=== PATIENT | male | born 1980 | race Caucasian/White ===

== ENCOUNTER 2024-12-07 08:17 | Outpatient (REF) | payer OTHER, SELFPAY ==
--- NOTE | ~2024-12-07 | XR_ITS ---
EXAMINATION: XR KNEE 3 VIEWS RIGHT HISTORY: M25.569 - Pain in unspecified knee COMPARISON: There are no prior studies available for comparison. FINDINGS: Standing AP views of both knees and additional lateral and sunrise patellar views of the right knee are submitted. Osseous mineralization is normal. There is no fracture or dislocation. The joint spaces are preserved. There is no joint effusion. The patient is status post left ACL repair. There is a probable old healed fracture of the proximal left fibula. XR/XR knee RT 3V IMPRESSION: Unremarkable examination of the right knee. Electronically signed by: Arik Pope MD 12/07/2024 01:39 PM EDT
== END 2024-12-07 08:18 | disposition home or self-care (01) ==
LOC: HO.HOSX 08:17
PROVIDERS: Visit Provider Physician Assistant
DX: M25.569 Pain in unspecified knee (principal)
CPT/HCPCS: 73562; 99202

== ENCOUNTER 2024-12-07 10:40 | Outpatient (AMB) | payer OTHER, SELFPAY ==
--- NOTE | 2024-12-07 11:14 | A.OFFVIS_ITS ---
Vital Signs 12/07/24 11:18 Height 5 ft 9 in Weight 160 lb BMI 23.6 Handedness Right Intake Visit Reasons: [employer]-Right knee pain DOI 10/19/24. Intake Note: Isael is a 44 year old male who presents today as a new patient for a evaluation of his right knee pain, WC 10/19/24. Patient reports he got his boot got stuck in a wheel wells when he turned and felt a pop in his knee. He states today he is feeling better and he has been doing at home exercises. Patient states that he is still having pain through out his knee. 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 Allergies No Known Allergies [No Known Allergies*] Allergy (Verified 12/07/24 11:16) HPI HPI [employer]-Right knee pain DOI 10/19/24.: Details: Mr. London is a 44-year-old male who presents to the office today for evaluation of right knee pain and instability. His pain is located over the medial aspect of the knee and has episodes of giving out. He reports that on 10/19/2024 he was at work in the back of his work truck when his boot got stuck in the wheel well as and he twisted. At that time he felt a popping sensation and pain. Has been performing a home exercise program but his pain is persisting and he is concerned about the episodes of giving way. 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 Tenderness to palpation over the medial joint line. Negative Sebastien's. Positive laxity with anterior drawer. Positive medial-sided laxity with valgus stress. NVI. Assessment & Plan Assessment & Plan (1) Acute injury of anterior cruciate ligament: Code(s): S89.80XA - Other specified injuries of unspecified lower leg, initial encounter Category: Medical (2) Injury of medial collateral ligament (MCL) of knee: Code(s): S89.90XA - Unspecified injury of unspecified lower leg, initial encounter Category: Medical Plan Mr. London is a 44-year-old male who presents to the office today for evaluation of right knee pain and instability. His pain is located over the medial aspect of the knee and has episodes of giving out. He reports that on 10/19/2024 he was at work in the back of his work truck when his boot got stuck in the wheel well as and he twisted. At that time he felt a popping sensation and pain. Has been performing a home exercise program but his pain is persisting and he is concerned about the episodes of giving way. While in the office today, we decided to move forward with an MRI to further evaluate the integrity of the knee and the surrounding structures. The patient does have laxity when testing the ACL and medial collateral ligament. Patient will follow up after the MRIs obtained, sooner if needed. He has been working full-time regular duty and will continue to do so. X-rays of the [facility]OD[facility] which were obtained while in the office today and were reviewed by me, Emilia Rubio PA-C, revealed no acute fracture dislocation. Evidence of ACL reconstruction on the left knee. Orders: Orders XR knee LT 1V Today M25.569 - Pain in unspecified knee XR knee RT 3V Today M25.569 - Pain in unspecified knee Coding Level of Care Code New Pt Level 4 (57658) Diagnoses Acute injury of anterior cruciate ligament S89.80XA Injury of medial collateral ligament (MCL) of knee S89.90XA
[2024-12-07 11:18] VITALS: BMI 23.6
== END 2024-12-07 11:51 | disposition home or self-care (01) ==
LOC: HO.HOS 10:41
PROVIDERS: Visit Provider Physician Assistant
DX: S89.80XA Other specified injuries of unspecified lower leg, initial encounter (principal); S89.90XA Unspecified injury of unspecified lower leg, initial encounter; Z04.2 Encounter for examination and observation following work accident
CPT/HCPCS: 99204

== ENCOUNTER → 2024-12-07 10:44 | Outpatient (BNV) | payer OTHER, SELFPAY | PROVIDERS: Visit Provider Radiology Diagnostic Radiology | DX: M25.561 Pain in right knee (principal) | CPT/HCPCS: 73562 ==

== ENCOUNTER 2025-01-10 13:43 | Outpatient (AMB) | payer OTHER, SELFPAY ==
--- NOTE | 2025-01-10 13:43 | MHC.OFFVIS ---
Vital Signs 01/10/25 13:44 Height 5 ft 9 in Weight 160 lb BMI 23.6 Intake Visit Reasons: Ph: Right knee MRI review Intake Note: Isael is a 44 year old male who presents via telephone for a MRI review of his right knee. Allergies No Known Allergies [No Known Allergies*] Allergy (Verified 01/10/25 13:44) HPI HPI Ph: Right knee MRI review: Details: Patient is a 44-year-old male who presents via telehealth appointment for MRI review of the right knee. He reports that the knee has continued to be bothersome to him. He reports maybe a slight improvement in pain. He has continued working full-time regular duty since his injury. 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 [employer] Review of Systems Const All systems reviewed & are unremarkable except as noted in HPI and below Physical Exam Vital Signs: BMI result Body Mass Index 23.6 Extrem Other: Deferred due to telehealth Telehealth Telehealth Telehealth Platform: Telephone Location of provider rendering services: practice address Location of patient: address on file Patient Identification confirmed using: Name, : Yes Telehealth method: voice only Patient verbally consented to treatment: Yes Patient verbally consented to billing insurance company: Yes Patient informed of any privacy concerns related to visit: Yes Minutes spent on Phone/Video with Pt.: 10 Assessment & Plan Assessment & Plan (1) Injury of medial collateral ligament (MCL) of knee: Code(s): S89.90XA - Unspecified injury of unspecified lower leg, initial encounter Category: Medical (2) Acute injury of anterior cruciate ligament: Code(s): S89.80XA - Other specified injuries of unspecified lower leg, initial encounter Category: Medical (3) Knee contusion: Code(s): S80.00XA - Contusion of unspecified knee, initial encounter Category: Medical Plan Patient is a 44-year-old male who presents via telehealth appointment for MRI review of the right knee. He reports that the knee has continued to be bothersome to him. He reports maybe a slight improvement in pain. He has continued working full-time regular duty since his injury. MRI that was obtained at [facility] on 01/08/2025 reveals a proximally torn ACL ligament. As well as osseous contusions with a lateral femoral condyle consistent with impaction injury and an MCL sprain. I discussed these findings with the patient. I have recommended physical therapy in which the patient is agreeable to attend 1-2 sessions with a home exercise program. I will follow up with him in 4 weeks in the office for re-evaluation, sooner if needed. Coding Level of Care Code Tele Est Pt Level 3 (48624) Diagnoses Injury of medial collateral ligament (MCL) of knee S89.90XA Acute injury of anterior cruciate ligament S89.80XA Knee contusion S80.00XA
[2025-01-10 13:44] VITALS: BMI 23.6
== END 2025-01-10 13:44 | disposition home or self-care (01) ==
LOC: HO.HOS 13:43
PROVIDERS: Visit Provider Physician Assistant
DX: S89.91XA Unspecified injury of right lower leg, initial encounter (principal); S89.81XA Other specified injuries of right lower leg, initial encounter; S80.01XA Contusion of right knee, initial encounter
CPT/HCPCS: 98012

== ENCOUNTER 2025-02-12 11:20 | Outpatient (AMB) | payer OTHER, BC, SELFPAY ==
--- NOTE | 2025-02-12 11:25 | MHC.OFFVIS ---
Intake Visit Reasons: OV - right knee pain, WC 10/19/24 Intake Note: Isael is a 44 year old male who presents today for a follow up of his right knee pain, 10/19/24. At the last visit patient was recommended physical therapy in which the patient is agreeable to attend 1-2 sessions with a home exercise program. Patient reports eh s doing well. Patient is still going to physical therapy and it is helping. Allergies No Known Allergies [No Known Allergies*] Allergy (Verified 02/12/25 11:36) HPI HPI OV - right knee pain, 10/19/24: Details: Mr. London is a 44 yo male who presents to the office today for routine followup of right knee pain. DOI was 10/19/24 when he was in the back of his work truck when his boot got stuck in the wheel well as and he twisted. The patient states that he has been working with [employer] and overall feels like he is making slow progress. 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 Tenderness to palpation over the medial joint line. Negative Sebastien's. Positive laxity with anterior drawer. Positive medial-sided laxity with valgus stress. NVI. Assessment & Plan Assessment & Plan (1) Injury of medial collateral ligament (MCL) of knee: Code(s): S89.90XA - Unspecified injury of unspecified lower leg, initial encounter Category: Medical (2) Acute injury of anterior cruciate ligament: Code(s): S89.80XA - Other specified injuries of unspecified lower leg, initial encounter Category: Medical (3) Knee contusion: Code(s): S80.00XA - Contusion of unspecified knee, initial encounter Category: Medical Plan Mr. London is a 44 yo male who presents to the office today for routine followup of right knee pain. DOI was 10/19/24 when he was in the back of his work truck when his boot got stuck in the wheel well as and he twisted. 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 and overall feels like he is making slow progress. While in the office today I have recommended that the patient continue with physical therapy until all viits have been completed. I offered the patient a knee brace to wear during activities and during coaching. The patient has declined at this time. He will follow up prn, sooner as needed. Coding Level of Care Code Est Pt Level 3 (49953) Diagnoses Injury of medial collateral ligament (MCL) of knee S89.90XA Acute injury of anterior cruciate ligament S89.80XA Knee contusion S80.00XA
== END 2025-02-12 11:49 | disposition home or self-care (01) ==
PROVIDERS: Visit Provider Physician Assistant
DX: S89.91XA Unspecified injury of right lower leg, initial encounter (principal); S89.81XA Other specified injuries of right lower leg, initial encounter; S80.01XA Contusion of right knee, initial encounter
CPT/HCPCS: 99213

== ENCOUNTER → 2025-02-12 11:20 | Outpatient (BNVA) | payer OTHER, SELFPAY | PROVIDERS: Visit Provider Physician Assistant | DX: S89.81XA Other specified injuries of right lower leg, initial encounter (principal); S80.01XA Contusion of right knee, initial encounter | CPT/HCPCS: 99212 ==

== ENCOUNTER 2025-02-28 11:54 | Outpatient (RCR) | payer OTHER, BC, SELFPAY ==
--- NOTE | 2025-01-29 15:26 | MHC.PT.EP ---
[facility] [place] Office [place] Office [place] Office [address] [phone] F: [phone] F: [phone] F: [phone] F: [phone] Physical Therapy Plan of Care Date of Evaluation: 01/29/25 Date of Surgery: N/A Diagnosis: injury of medial collateral ligament (MCL) of knee (RL) MCL and ACL partial tearing R knee Assessment: pt is a 44 y/o male presenting to physical therapy w/ referring diagnosis of injury of medial collateral ligament (MCL) of knee. His MRI demonstrated a partial MCL tear and proximal insertion ACL tear. Impairments include pain, decreased range of motion, decreased strength, impaired functional mobility, impaired postural awareness, and altered ambulation mechanics. pt is a good candidate for skilled PT due to age, potential remediation of impairments, typical disease/condition progression and prognosis, comorbidities, and motivation. pt would benefit from skilled PT intervention to provide a tailored strengthening and stretching exercise program, functional training, gait training, postural re-training, neuromuscular re-education, modalities as needed for pain, equipment safety demonstration. Frequency and Duration: The patient will be seen 2x/wk for 4 wks Short Term Goals: pt will be I w/ HEP to promote self-management of condition. pt will demo symmetrical weightbearing w/ functional squat to promote ease in work-related lifting. Detention Goals: pt will report a statistically significant improvement in self-reported outcome measure, LEFI, to promote return to PLOF. pt will improve R hip EXT and R knee EXT strength to 5/5 to promote ease in rising from a kneeling position for work. pt will report <2/10 R knee pain w/ ascending/descending 12 stairs w/ reciprocal pattern to promote ease in stairs. Treatment Plan: Modalities to reduce pain, spasms and effusion. Manual therapy to restore motion and function. Therapeutic exercise to improve strength and flexibility. Neuromuscular re-education for posture and balance. Therapeutic activities to return to functional activities of daily living. Electronically signed by: Maria D Smith PT, DPT Please sign and return to therapist. Thank you for your referral.
--- NOTE | 2025-03-12 10:09 | MHC.PT.DC ---
[facility] [place] Office [place] Office [place] Office [address] Lai [address] [facility] [phone] F: [phone] F: [phone] F: [phone] F: [phone] Physical Therapy Discharge Report Diagnosis: injury of medial collateral ligament (MCL) of knee (RL) MCL and ACL partial tearing R knee Date of Surgery: N/A Date of Evaluation: 01/29/25 Date of Discharge: 03/12/25 Treatments to Date: 8 Cancellations to Date: 1 No Shows to Date: 0 Discharge Status: Improved Function Independent with HEP Discharge Summary: The patient has not been complaining of any knee pain. He feels his leg is stable at rest and with dynamic activity. He has returned to nearly all of his activities (some are currently off-season). No hesitation or concerns with his ability to participate in recreational activities at this time. He is independent with his home exercise program. He is discharged from this physical therapy plan of care. Electronically signed by: Maria D Smith PT, DPT Please sign and return to therapist. Thank you for your referral.
== END 2025-03-12 10:09 | disposition home or self-care (01) ==
LOC: HO.PT 11:54
PROVIDERS: Visit Provider Physician Assistant
DX: S83.519D Sprain of anterior cruciate ligament of unspecified knee, subsequent encounter (principal); S83.419D Sprain of medial collateral ligament of unspecified knee, subsequent encounter; S80.00XD Contusion of unspecified knee, subsequent encounter
CPT/HCPCS: 97110; 97112; 97161; 97530